=== PATIENT | male | born 1970 | race Caucasian/White ===

== ENCOUNTER 2017-06-09 20:19 | Inpatient (IN) | payer OTHER ==
[~2017-06-09] VITALS: Ht 170.2 cm; Wt 60.5 kg
[~2017-06-09 20:19] MED LIST: BUPRENORPHIN-N1 EACH SL; FLEXERIL10 MG PO; FLOMAX0.4 MG PO; GABAPENTIN400 MG PO; LIDODERM 5% P1 PATCH TD; LYRICA100 MG PO; METHOCARBAMOL750 MG PO; MIRTAZAPINE30 MG PO; MOTRIN600 MG PO; MOTRIN800 MG PO; NAPROSYN500 MG PO; NEURONTIN400 MG PO; PERCOCET 5/31 TABLET PO; PREDNISONE50 MG PO; REMERON45 MG PO; SUBOXONE 2 MG-1 EACH SL; SUBOXONE 4 MG-1 EACH SL; ULTRAM50 MG PO
[2017-06-09 20:52] LABS: MCH 29.6 PG (29.0-34.0); MCV 87.1 FL (86-99); MEAN PLAT.VOLUME 8.8 uM^3 (9.0-12.4); PLATELET COUNT 219 K/uL (156-360); RBC DIS.WIDTH-CV 13.1 % (11.8-14.6); RED BLOOD COUNT 4.59 M/uL (4.00-5.50); WHITE BLOOD COUNT 7.4 K/uL (4.1-10.2)
[2017-06-09 21:00] LABS: CHLORIDE 103 mEq/L (99-109); POTASSIUM 3.8 mEq/L (3.7-5.4); SODIUM 137 mEq/L (136-147)
[2017-06-09 21:02] LABS: GLUCOSE 109 mg/dL (70-99)
[2017-06-09 21:04] LABS: ANION GAP 12 MEQ/L (2-14); TOTAL BILIRUBIN 0.5 mg/dL (0.0-1.0)
[2017-06-09 21:05] LABS: SERUM ETHYL ALCOHOL < 10 mg/dL
[2017-06-09 21:06] LABS: ALKALINE PHOSPHATASE 92 IU/L (3-129); GFR ESTIMATE (CALCULATED) > 59 mL/min/
[2017-06-09 21:07] LABS: UREA NITROGEN (BUN) 15 mg/dL (9-23)
[2017-06-09 22:43] LABS: ADD MIUA? NO; BILIRUBIN NEGATIVE; BLOOD NEGATIVE; COLOR YELLOW ((YELLOW)); GLUCOSE (STRIP) NEGATIVE; KETONES NEGATIVE; LEUKOCYTES NEGATIVE; NITRITE NEGATIVE; PROTEIN (STRIP) NEGATIVE; SPECIFIC GRAVITY 1.029 (1.000-1.030); UCUL ADDED? NO
[2017-06-09 22:51] LABS: PHENCYCLIDINE NEGATIVE (25 ng/mL); THC CANNABINOIDS PRESUMPTIVE POSITIVE (50 ng/mL)
[2017-06-09 22:52] LABS: ADD MEDTOX COMMENT Y; AMPHETAMINE NEGATIVE (500 ng/mL); BARBITURATES NEGATIVE (200 ng/mL); BENZODIAZEPINES NEGATIVE (150 ng/mL); COCAINE PRESUMPTIVE POSITIVE (150 ng/mL); INTERNAL CONTROLS VALID? YES; METHADONE NEGATIVE (200 ng/mL); METHAMPHETAMINE NEGATIVE (500 ng/mL); OPIATES (MORPHINE) PRESUMPTIVE POSITIVE (100 ng/mL); OXYCODONE NEGATIVE (100 ng/mL); PROPOXYPHENE NEGATIVE (300 ng/mL); TRICYCLIC ANTIDEPRESSANTS NEGATIVE (300 ng/mL)
[2017-06-10 00:02] VITALS: BP 108/60
[2017-06-10 07:36] VITALS: BP 91/55
[2017-06-10 15:02] VITALS: BP 103/62
[2017-06-11 07:56] VITALS: BP 97/55
[2017-06-11 15:38] VITALS: BP 95/55
[2017-06-12 07:59] VITALS: BP 91/51
[2017-06-12 16:05] VITALS: BP 102/55
[2017-06-12 21:13] VITALS: BP 92/50
[2017-06-13 07:46] VITALS: BP 86/52
[2017-06-13 15:44] VITALS: BP 116/60
[2017-06-14] MEDS ORDERED: MIRTAZAPINE30 MG PO (13:56)
[2017-06-14] MEDS ORDERED: GABAPENTIN400 MG PO (13:56)
== END 2017-06-14 14:30 | DRG 885 ==
LOC: EME 20:19 → 1WEST 21:36 → EDOF 21:36 → ENRESERV 21:54 → 1WEST 23:55
PROVIDERS: Emergency Medicine
DX: F33.9 Major depressive disorder, recurrent, unspecified (principal); F14.90 Cocaine use, unspecified, uncomplicated; F11.20 Opioid dependence, uncomplicated; Z59.0 Homelessness; R45.851 Suicidal ideations
CPT/HCPCS: 71020; 80053; 81003; 84999; 85027; 90839; 97150 GO; 97166 GO; 99281; 99285; G0480; J0572; J0574

== ENCOUNTER 2017-07-03 20:12 | Inpatient (IN) | payer OTHER ==
[~2017-07-03] VITALS: Ht 172.7 cm; Wt 65.4 kg
[2017-07-03 21:14] LABS: AMPHETAMINE NEGATIVE (500 ng/mL); BARBITURATES NEGATIVE (200 ng/mL); BENZODIAZEPINES NEGATIVE (150 ng/mL); COCAINE PRESUMPTIVE POSITIVE (150 ng/mL); INTERNAL CONTROLS VALID? YES; METHADONE NEGATIVE (200 ng/mL); METHAMPHETAMINE NEGATIVE (500 ng/mL); OPIATES (MORPHINE) NEGATIVE (100 ng/mL); OXYCODONE NEGATIVE (100 ng/mL); PHENCYCLIDINE NEGATIVE (25 ng/mL); PROPOXYPHENE NEGATIVE (300 ng/mL); THC CANNABINOIDS NEGATIVE (50 ng/mL); TRICYCLIC ANTIDEPRESSANTS PRESUMPTIVE POSITIVE (300 ng/mL)
[2017-07-03 21:15] LABS: ADD MEDTOX COMMENT Y
[2017-07-04 07:41] LABS: EOSINOPHIL (%) 2.1 % (0-5); EOSINOPHIL COUNT 0.2 K/uL (0-0.3); HEMATOCRIT 39.7 % (38.0-50.0); IMMATURE GRANULOCYTE (%) 0.3 % (0.0-0.7); INSTRUMENT ABS NEUTROPHIL CT 4.3 K/uL; MCH 29.4 PG (29.0-34.0); MCV 86.5 FL (86-99); MEAN PLAT.VOLUME 8.8 uM^3 (9.0-12.4); MONOCYTE (%) 14.2 % (3-12); MONOCYTE COUNT 1.1 K/uL (0-0.8); NEUTROPHIL (%) 56.5 % (45-76); NEUTROPHIL COUNT 4.3 K/uL (1.8-6.4); PLATELET COUNT 237 K/uL (156-360); RBC DIS.WIDTH-CV 13.1 % (11.8-14.6); RBC DIS.WIDTH-SD 40.6 % (39-53); RED BLOOD COUNT 4.59 M/uL (4.00-5.50); WHITE BLOOD COUNT 7.6 K/uL (4.1-10.2)
[2017-07-04 08:07] LABS: ANION GAP 5 MEQ/L (2-14); CHLORIDE 105 MEQ/L (99-109); POTASSIUM 3.5 MEQ/L (3.7-5.4); SAMPLE HEMOLYSIS CHECK 0; SAMPLE ICTERIC CHECK 0; SAMPLE LIPEMIA CHECK 0; SODIUM 138 MEQ/L (136-147)
[2017-07-04 09:06] LABS: GFR ESTIMATE (CALCULATED) > 59 mL/min/; GLUCOSE 89 mg/dL (70-99); SERUM ETHYL ALCOHOL < 10 mg/dL; UREA NITROGEN (BUN) 12 mg/dL (9-23)
[2017-07-04] MEDS ORDERED: QUETIAPINE FUM100 MG PO (16:58)
[2017-07-04] MEDS ORDERED: NICOTINE PATCH1 EAC2 TD (17:36)
[2017-07-04 18:12] VITALS: BP 117/64
[2017-07-05 07:34] VITALS: BP 118/63
[2017-07-05 15:20] VITALS: BP 107/63
[2017-07-06 07:45] VITALS: BP 106/57
[2017-07-06] MEDS ORDERED: QUETIAPINE FUM100 MG PO (09:34)
[2017-07-06] MEDS ORDERED: MIRTAZAPINE30 MG PO (09:34)
[2017-07-06] MEDS ORDERED: GABAPENTIN400 MG PO (09:34)
== END 2017-07-06 12:34 | disposition home or self-care (01) | DRG 881 ==
LOC: EME 20:12 → 1WEST 07-04 14:31 → EDOF 07-04 14:31 → ENRESERV 07-04 16:32 → 1WEST 07-04 16:54
PROVIDERS: Emergency Medicine
DX: F32.9 Major depressive disorder, single episode, unspecified (principal); F11.23 Opioid dependence with withdrawal; R45.851 Suicidal ideations; F14.90 Cocaine use, unspecified, uncomplicated; F17.200 Nicotine dependence, unspecified, uncomplicated; F41.9 Anxiety disorder, unspecified; Z91.14 Patient's other noncompliance with medication regimen; Z79.899 Other long term (current) drug therapy; Z87.442 Personal history of urinary calculi; Z59.0 Homelessness
CPT/HCPCS: 80048; 84999; 85025; 90839; 97166 GO; 99281; 99285; G0480; Q0177